=== PATIENT | female | born 1940 | race Caucasian/White ===

== ENCOUNTER → 2025-03-22 14:50 | Outpatient (CLI) | payer MEDICARE, OTHER, SELFPAY | LOC: ECHO 14:52 | PROVIDERS: PCP Physician Assistant; Referring Provider Physician Assistant; Visit Provider Physician Assistant | DX: I34.1 Nonrheumatic mitral (valve) prolapse (principal); I34.0 Nonrheumatic mitral (valve) insufficiency | CPT/HCPCS: 93306 ==